=== PATIENT | male | born 1970 | race Two or more races ===

== ENCOUNTER → 2018-07-15 | Outpatient (CLI) | payer OTHER | END | disposition home or self-care (01) | LOC: LAB 10:12 | DX: Z13.0 Encounter for screening for diseases of the blood and blood-forming organs and certain disorders involving the immune mechanism (principal); Z13.220 Encounter for screening for lipoid disorders; Z13.29 Encounter for screening for other suspected endocrine disorder; Z12.5 Encounter for screening for malignant neoplasm of prostate ==

== ENCOUNTER 2019-05-24 12:46 | Outpatient (CLI) | payer OTHER | END 2019-05-24 13:01 | disposition home or self-care (01) | LOC: RAD 12:46 | DX: M54.5 Low back pain (principal); M54.89 Other dorsalgia ==

== ENCOUNTER → 2019-06-10 | Outpatient (CLI) | payer OTHER | END | disposition home or self-care (01) | LOC: TOM 06-08 14:15 | DX: M54.5 Low back pain (principal); M51.37 Other intervertebral disc degeneration, lumbosacral region | CPT/HCPCS: 72148 ==

== ENCOUNTER 2019-06-26 08:38 | Outpatient (CLI) | payer OTHER | END 2019-06-26 14:04 | disposition home or self-care (01) | LOC: LAB 08:38 | DX: D07.5 Carcinoma in situ of prostate (principal); Z13.220 Encounter for screening for lipoid disorders; Z13.29 Encounter for screening for other suspected endocrine disorder; Z13.0 Encounter for screening for diseases of the blood and blood-forming organs and certain disorders involving the immune mechanism; E55.9 Vitamin D deficiency, unspecified ==

== ENCOUNTER 2019-12-06 10:12 | Outpatient (CLI) | payer OTHER | END 2019-12-06 10:28 | disposition home or self-care (01) | LOC: LAB 10:12 | DX: R76.0 Raised antibody titer (principal) ==

== ENCOUNTER 2019-12-23 10:56 | Outpatient (CLI) | payer OTHER | END 2019-12-23 15:13 | disposition home or self-care (01) | LOC: LAB 10:56 | DX: E78.49 Other hyperlipidemia (principal); E11.9 Type 2 diabetes mellitus without complications; E03.1 Congenital hypothyroidism without goiter; N39.0 Urinary tract infection, site not specified; M25.50 Pain in unspecified joint; N40.0 Benign prostatic hyperplasia without lower urinary tract symptoms ==

== ENCOUNTER 2020-01-04 14:52 | Outpatient (CLI) | payer OTHER | END 2020-01-04 15:25 | disposition home or self-care (01) | LOC: LAB 14:52 | DX: R50.9 Fever, unspecified (principal) ==

== ENCOUNTER 2020-01-07 09:16 | Outpatient (CLI) | payer OTHER | END 2020-01-07 10:13 | disposition home or self-care (01) | LOC: LAB 09:16 | DX: R50.9 Fever, unspecified (principal) ==

== ENCOUNTER 2020-01-07 10:18 | Outpatient (CLI) | payer OTHER ==
[2020-01-09] MEDS ORDERED: COSOPT PF EYE1 EACH (08:20)
[2020-01-09] MEDS ORDERED: AIRBORNE EFFER1 EACH PO (15:16)
[2020-01-09] MEDS ORDERED: CEFDINIR300 MG PO (15:16)
[2020-01-09] MEDS ORDERED: INTESTINEX680 M1 PO (15:16)
[2020-01-09] MEDS ORDERED: ZITHROMAX500 MG PO (15:16)
[2020-01-09] MEDS ORDERED: MUCINEX DM ER1 EAC1 PO (15:16)
== END 2020-01-10 09:28 | disposition home or self-care (01) ==
LOC: TOM 10:18
DX: R06.02 Shortness of breath (principal)

== ENCOUNTER 2020-01-09 08:12 | Emergency (ER) | payer OTHER ==
[~2020-01-09] VITALS: Ht 152.4 cm; Wt 72.6 kg
[2020-01-09] MEDS ORDERED: COSOPT PF EYE1 EACH (08:20)
[2020-01-09] MEDS ORDERED: CEFDINIR300 MG PO (15:16)
[2020-01-09] MEDS ORDERED: ZITHROMAX500 MG PO (15:16)
[2020-01-09] MEDS ORDERED: MUCINEX DM ER1 EAC1 PO (15:16)
[2020-01-09] MEDS ORDERED: AIRBORNE EFFER1 EACH PO (15:16)
[2020-01-09] MEDS ORDERED: INTESTINEX680 M1 PO (15:16)
== END 2020-01-09 17:06 | disposition home or self-care (01) ==
LOC: ER 08:12
DX: J22 Unspecified acute lower respiratory infection (principal); R50.9 Fever, unspecified; R53.81 Other malaise

== ENCOUNTER 2020-01-14 08:13 | Outpatient (CLI) | payer OTHER ==
[~2020-01-14 08:13] MED LIST: AIRBORNE EFFER1 EACH PO; CEFDINIR300 MG PO; COSOPT PF EYE1 EACH; INTESTINEX680 M1 PO; MUCINEX DM ER1 EAC1 PO; ZITHROMAX500 MG PO
== END 2020-01-14 12:26 | disposition home or self-care (01) ==
LOC: LAB 08:13
DX: R50.9 Fever, unspecified (principal)

== ENCOUNTER 2020-01-18 09:41 | Outpatient (CLI) | payer OTHER | END 2020-01-18 10:27 | disposition home or self-care (01) | LOC: LAB 09:41 | DX: Z12.11 Encounter for screening for malignant neoplasm of colon (principal); R50.9 Fever, unspecified ==

== ENCOUNTER 2020-01-18 09:46 | Outpatient (CLI) | payer OTHER | END 2020-01-18 09:50 | disposition home or self-care (01) | LOC: TOM 09:46 | DX: R19.5 Other fecal abnormalities (principal); R50.9 Fever, unspecified ==

== ENCOUNTER 2020-01-19 09:47 | Inpatient (IN) | payer OTHER ==
[2020-01-22] MEDS ORDERED: MORGIDOX100 MG PO (16:46)
[2020-01-22] MEDS ORDERED: FLAGYL500MG PO (16:46)
[2020-01-22] MEDS ORDERED: PROBIOTIC1 EAC2 PO (16:48)
== END 2020-01-22 17:51 | disposition home or self-care (01) | DRG 690 ==
LOC: MEDJ 09:47
PROVIDERS: ADMIT Internal Medicine
PROC: B246ZZZ Ultrasonography of Right and Left Heart (ICD-10-PCS; principal; 2020-01-19)
PROC: 0W9H30Z Drainage of Retroperitoneum with Drainage Device, Percutaneous Approach (ICD-10-PCS; 2020-01-19)
DX: N30.80 Other cystitis without hematuria (principal); D47.3 Essential (hemorrhagic) thrombocythemia; I89.8 Other specified noninfective disorders of lymphatic vessels and lymph nodes; Z85.46 Personal history of malignant neoplasm of prostate

== ENCOUNTER 2020-01-28 09:35 | Outpatient (CLI) | payer OTHER ==
[~2020-01-28 09:35] MED LIST changes: +FLAGYL500MG PO; +MORGIDOX100 MG PO; +PROBIOTIC1 EAC2 PO
== END 2020-01-28 09:47 | disposition home or self-care (01) ==
LOC: LAB 09:35
DX: R50.9 Fever, unspecified (principal); Z13.220 Encounter for screening for lipoid disorders

== ENCOUNTER 2020-02-07 11:50 | Outpatient (CLI) | payer OTHER | END 2020-02-07 13:03 | disposition home or self-care (01) | LOC: LAB 11:50 | DX: B96.6 Bacteroides fragilis [B. fragilis] as the cause of diseases classified elsewhere (principal) ==

== ENCOUNTER 2020-02-07 12:04 | Outpatient (CLI) | payer OTHER | END 2020-02-07 15:00 | disposition home or self-care (01) | LOC: TOM 12:04 | DX: N20.1 Calculus of ureter (principal) ==

== ENCOUNTER 2020-05-08 16:40 | Outpatient (CLI) | payer OTHER | END 2020-05-08 16:55 | disposition home or self-care (01) | LOC: RAD 16:40 | PROVIDERS: ATTEND General Practice | DX: S43.402A Unspecified sprain of left shoulder joint, initial encounter (principal); S60.221A Contusion of right hand, initial encounter; S70.01XA Contusion of right hip, initial encounter; V00.131A Fall from skateboard, initial encounter ==

== ENCOUNTER → 2020-05-17 | Outpatient (CLI) | payer OTHER | END | disposition home or self-care (01) | LOC: MRI 11:54 | PROVIDERS: ATTEND Internal Medicine Geriatric Medicine | DX: S70.11XA Contusion of right thigh, initial encounter (principal) | CPT/HCPCS: 73718 ==

== ENCOUNTER 2020-07-04 09:57 | Outpatient (CLI) | payer OTHER | END 2020-07-04 15:52 | disposition home or self-care (01) | LOC: LAB 09:57 | PROVIDERS: ATTEND Internal Medicine | DX: E55.9 Vitamin D deficiency, unspecified (principal); Z13.1 Encounter for screening for diabetes mellitus; Z13.220 Encounter for screening for lipoid disorders; Z85.46 Personal history of malignant neoplasm of prostate ==

== ENCOUNTER 2020-08-02 06:00 | Day surgery (SDC) | payer OTHER | END 2020-08-02 14:25 | disposition home or self-care (01) | LOC: AMB-ENDOS 06:00 | PROVIDERS: ATTEND Colon & Rectal Surgery | DX: D12.3 Benign neoplasm of transverse colon (principal); D12.5 Benign neoplasm of sigmoid colon; Z20.828 Contact with and (suspected) exposure to other viral communicable diseases ==

== ENCOUNTER 2020-08-08 16:20 | Outpatient (CLI) | payer OTHER | END 2020-08-08 16:22 | disposition home or self-care (01) | LOC: PPH VACUNA 16:20 | DX: Z23 Encounter for immunization (principal) ==

== ENCOUNTER 2021-02-22 09:15 | Outpatient (CLI) | payer OTHER | END 2021-02-22 09:20 | disposition home or self-care (01) | LOC: PPH VACUNA 09:15 | DX: Z23 Encounter for immunization (principal) ==

== ENCOUNTER → 2021-04-25 | Outpatient (CLI) | payer OTHER | END | disposition home or self-care (01) | LOC: SONOGRAMA 10:21 | PROVIDERS: ATTEND Emergency Medicine | DX: M79.9 Soft tissue disorder, unspecified (principal) ==

== ENCOUNTER 2021-06-04 15:33 | Outpatient (CLI) | payer OTHER | END 2021-06-04 19:00 | disposition home or self-care (01) | LOC: LAB 15:33 | PROVIDERS: ATTEND Emergency Medicine Pediatric Emergency Medicine | DX: Z03.818 Encounter for observation for suspected exposure to other biological agents ruled out (principal) ==

== ENCOUNTER 2021-10-18 12:44 | Outpatient (CLI) | payer OTHER | END 2021-10-18 13:00 | disposition home or self-care (01) | LOC: MRI 12:44 | PROVIDERS: ATTEND Internal Medicine Geriatric Medicine | DX: S83.105A Unspecified dislocation of left knee, initial encounter (principal); S83.207A Unspecified tear of unspecified meniscus, current injury, left knee, initial encounter; M25.562 Pain in left knee | CPT/HCPCS: 73721 ==

== ENCOUNTER 2022-01-22 08:00 | Outpatient (CLI) | payer OTHER | END 2022-01-22 08:30 | disposition home or self-care (01) | LOC: PPH VACUNA 08:00 | PROVIDERS: ATTEND Emergency Medicine Pediatric Emergency Medicine | DX: Z23 Encounter for immunization (principal) | CPT/HCPCS: 90686; G0008 ==

== ENCOUNTER 2022-03-12 07:19 | Outpatient (CLI) | payer OTHER | END 2022-03-12 08:37 | disposition home or self-care (01) | LOC: LAB 07:19 | PROVIDERS: ATTEND Internal Medicine | DX: D07.5 Carcinoma in situ of prostate (principal); Z13.220 Encounter for screening for lipoid disorders; Z13.1 Encounter for screening for diabetes mellitus ==

== ENCOUNTER 2023-08-13 02:45 | Outpatient (CLI) | payer OTHER | END 2023-08-13 02:55 | disposition home or self-care (01) | LOC: PPH VACUNA 02:45 | PROVIDERS: ATTEND Emergency Medicine Pediatric Emergency Medicine | DX: Z23 Encounter for immunization (principal) | CPT/HCPCS: 90686; G0008 ==

== ENCOUNTER → 2023-08-22 10:02 | Outpatient (CLI) | payer OTHER | END | disposition home or self-care (01) | LOC: LAB 10:02 | PROVIDERS: ATTEND Internal Medicine Geriatric Medicine | DX: Z11.3 Encounter for screening for infections with a predominantly sexual mode of transmission (principal); Z88.0 Allergy status to penicillin ==

== ENCOUNTER 2024-09-07 08:51 | Outpatient (CLI) | payer OTHER | END 2024-09-07 09:01 | disposition home or self-care (01) | LOC: SONOGRAMA 08:51 | DX: N28.1 Cyst of kidney, acquired (principal) ==

== ENCOUNTER → 2024-09-08 12:05 | Outpatient (CLI) | payer OTHER | END | disposition home or self-care (01) | LOC: NUCLEAR 11:00 | PROVIDERS: ATTEND Internal Medicine Hematology & Oncology | DX: M85.89 Other specified disorders of bone density and structure, multiple sites (principal); C61 Malignant neoplasm of prostate; M81.0 Age-related osteoporosis without current pathological fracture ==